=== PATIENT | male | born 1950 | race Caucasian/White ===

== ENCOUNTER 2021-08-19 09:47 | Outpatient (REF) | payer MEDICARE, OTHER, SELFPAY ==
[2021-08-19 10:39] LABS: Hematocrit 43.2 % (42-52); Hemoglobin 14.5 g/dl (14.0-18.0); Mean Corpuscular HGB Conc 33.6 g/dl (31.0-36.0); Mean Corpuscular Volume 98.2 fL (80-98); Mean Platelet Volume 11.1 fL (9.4-12.4); Platelet Count 144 X10*3/uL (160-400); Red Cell Distribution Width 11.8 % (11.0-16.0); White Blood Count 4.3 X10*3/uL (4.8-10.8)
[2021-08-19 11:29] LABS: Cholesterol 172 mg/dL; Glucose Fasting 97 mg/dL (60-99); HDL Cholesterol 35 mg/dL; LDL Cholesterol Calculated 118 mg/dl; Triglycerides 98 mg/dL
[2021-08-19 11:55] LABS: Prostate Specific Antigen Scr 2.37 ng/mL (<0.05-4.0)
== END 2021-08-19 09:48 | disposition home or self-care (01) ==
LOC: HO.LAB 09:47
PROVIDERS: PCP Family Medicine; Visit Provider Family Medicine
DX: Z12.5 Encounter for screening for malignant neoplasm of prostate (principal); E78.00 Pure hypercholesterolemia, unspecified; D72.819 Decreased white blood cell count, unspecified; Z83.3 Family history of diabetes mellitus; Z79.899 Other long term (current) drug therapy
CPT/HCPCS: 36415; 80061; 82947; 84153; 85027

== ENCOUNTER 2022-06-25 08:25 | Outpatient (REF) | payer MEDICARE, OTHER, SELFPAY ==
--- NOTE | ~2022-06-25 | XR_ITS ---
EXAMINATION: XR KNEE, LEFT CLINICAL INFORMATION: Pain. COMPARISON: None TECHNIQUE: Four views of the left knee. FINDINGS: No acute fracture or malalignment. Severe tricompartmental degenerative osteoarthritis more notable in the medial and patellofemoral compartments with joint space narrowing, subcortical sclerosis and osteophytes. No chondrocalcinosis. Small joint effusion. XR/XR knee LT 4V IMPRESSION: No acute fracture or malalignment. Severe tricompartmental degenerative osteoarthritis. Small joint effusion.
[2022-06-25 09:39] LABS: Alanine Aminotransferase 12 U/L (0-40); Aspartate Amino Transferase 15 U/L (5-37); Cholesterol 169 mg/dL; Glucose Fasting 100 mg/dL (60-99); HDL Cholesterol 36 mg/dL; LDL Cholesterol Calculated 118 mg/dl; Triglycerides 75 mg/dL
== END 2022-06-25 08:26 | disposition home or self-care (01) ==
LOC: HO.XRAY 08:25
PROVIDERS: PCP Family Medicine; Visit Provider Family Medicine
DX: M25.562 Pain in left knee (principal); E78.00 Pure hypercholesterolemia, unspecified; Z83.3 Family history of diabetes mellitus
CPT/HCPCS: 36415; 73564; 80061; 82947; 84450; 84460

== ENCOUNTER → 2022-08-13 10:50 | Outpatient (REF) | payer MEDICARE, OTHER, SELFPAY ==
--- NOTE | 2022-08-13 10:57 | ECG_ITS ---
Test Reason : new afib Blood Pressure : / mmHG Vent. Rate : 081 BPM Atrial Rate : 000 BPM P-R Int : 000 ms QRS Dur : 092 ms QT Int : 374 ms P-R-T Axes : 000 034 066 degrees QTc Int : 434 ms Atrial fibrillation Abnormal ECG When compared with ECG of 30-JAN-2015 10:59, Atrial fibrillation has replaced Sinus rhythm Referred By: Desean Barrientos Electronically Signed By:RADHA ROJAS
== END ==
LOC: HO.CARD 10:50
PROVIDERS: PCP Family Medicine; Visit Provider Family Medicine
DX: I48.91 Unspecified atrial fibrillation (principal)
CPT/HCPCS: 93005

== ENCOUNTER → 2022-09-15 07:18 | Outpatient (REF) | payer MEDICARE, OTHER, SELFPAY ==
--- NOTE | 2022-09-15 07:21 | CA_ITS ---
Transthoracic Echocardiogram Patient (Last, First, Middle): Rao Arteaga L Gender: Male Date of : 1950 Age: 72 Procedure Date: 09/15/2022 Procedure Type: Transthoracic Echocardiogram Location: OP Height: 185.42 cm Weight: 127.01 kg BSA: 2.48 m2 Heart Rate: bpm BP: 148 / 72 mmHg High School Sports Coach: SB Referring MD: Desean Barrientos MD [place] Administrator: Sonny Palacios MD Symptoms: NEW ONSET A FIB Study Quality: Adequate w contrast ECG Rhythm: Atrial Fibrillation Conclusions: - 1. Normal LV systolic function 2. Mild aortic stenosis 3. Mildly dilated ascending aorta at 3.8 cm 4. Normal RV systolic pressure 5. No gross pericardial effusion Findings Procedure Information Contrast agent, definity, is being given per protocol without apparent complications. Left Ventricle Normal left ventricular size, thickness, and systolic function. The visually estimated ejection fraction is between 60-65%. Diastolic function is indeterminate on the basis of available data. Right Ventricle The right ventricle was not well visualized. Atria The left atrium is likely dilated. Interatrial shunt cannot be excluded. The right atrium was not well visualized. Aortic Valve The aortic valve was not well visualized. There is mild calcification of the aortic valve. There is mild thickening of the aortic valve. There is mild aortic valve stenosis. The peak aortic gradient is 19 mmHg.The mean gradient is 10 mmHg. There is no aortic valve regurgitation. Mitral Valve The mitral valve was not well visualized. There is no mitral valve regurgitation. There is no mitral valve stenosis. Pulmonic Valve The pulmonic valve was not well visualized. Tricuspid Valve The tricuspid valve was not well visualized. There is trace tricuspid valve regurgitation. The right ventricular systolic pressure is normal. The right ventricular systolic pressure is 26 mmHg. Normal right atrial pressure. There is no evidence of pulmonary hypertension. Great Vessels The pulmonary artery was not well visualized. There is mild dilatation of the ascending aorta measuring 3.80 cm. Venous The inferior vena cava is normal in size and collapses greater than 50% with inspiration. Pericardium/Pleural There is no evidence of pericardial effusion. Prior Study Comparison Changes noted compared to prior study dated: 03/13/2017. mild aortic stenosis is noted Measurements 2D Linear Measurements IVSd: 1.09 0.6-0.9/0.6-1.0 cm LVIDd: 5.19 3.9-5.3/4.2-5.9 cm LVIDd Index: 2.09 2.4-3.2/2.2-3.1 cm/m2 LVIDs: 3.99 2.0-3.6 cm LVPWd: 0.89 0.7-1.1 cm LA Diam: 4.00 2.7-3.8/3.0-4.0 cm LAIDs Index: 1.61 1.5-2.3 cm/m2 LV Mass: 238.44 67-162/88-224 g LV Mass Index: 96.14 43-95/49-115 g/m2 LVOT Diam: 2.00 3.0+(-)1.3 cm 2D Systolic Function EF 4C: 65.20 >55% EF 2C: 60.80 >55% EF BiP: 63.30 >55% Mitral Valve MV Pk E: 0.98 Aortic Valve AoV Pk Jose: 2.16 AoV Mn Jose: 1.51 AoV VTI: 0.42 AoV Pk Grad: 19.00 Aov Mn Grad: 10.00 SURENDRA Cont.VTI: 1.65 LVOT LVOT Pk Jose: 1.43 LVOT Mn Jose: 0.95 LVOT VTI: 0.28 LVOT Pk Grad: 8.00 LVOT Mn Grad: 4.00 LVOT Diam: 2.00 LVOT Area: 3.14 Diastolic Function MV Pk E: 0.98 Right Ventricle TAPSE (mm): 22.50 TVS' Jose: 13.20 Tricuspid Valve TR Pk Jose: 2.38 TR Pk Grad: 23.00 RA Press: 3.00 RVSP: 26.00 Great Vessels Aorta Sinus of Valsalva: 3.20 2.0-3.5 cm Ao Asc: 3.80 2.1-3.4 cm Pulmonary Valve PV Pk Jose: 1.10 Peak PV Grad: 5.00 Updated in Other Vendor System with Status of Final Sonny Palacios MD electronically signed on 09/16/2022 4:09:01 PM with status of Final
== END ==
LOC: HO.CARD 07:18
PROVIDERS: PCP Family Medicine; Visit Provider Family Medicine
DX: I48.91 Unspecified atrial fibrillation (principal)
CPT/HCPCS: 93306; Q9957

== ENCOUNTER → 2022-09-22 10:07 | Outpatient (BNVA) | payer MEDICARE, OTHER, SELFPAY | PROVIDERS: PCP Family Medicine; Visit Provider Internal Medicine Cardiovascular Disease | DX: I48.19 Other persistent atrial fibrillation (principal); I35.0 Nonrheumatic aortic (valve) stenosis | CPT/HCPCS: 93005; 99202 ==

== ENCOUNTER 2023-07-15 09:50 | Outpatient (REF) | payer MEDICARE, OTHER, SELFPAY ==
[2023-07-15 10:39] LABS: MANUAL DIFF FLAG NO
[2023-07-15 12:10] LABS: Basophils Percent Auto 0.5 % (0-2); Eosinophils Absolute Auto 0.1 X10*3/uL (0.0-0.4); Eosinophils Percent Auto 1.9 % (0-4); Hematocrit 45.6 % (42.0-52.0); Hemoglobin 15.7 g/dl (14.0-18.0); Imm Gran Abs Auto 0.02 X10*3/uL (0.00-0.03); Imm Gran Pct Auto 0.5 % (0.0-0.4); Lymphocytes Absolute Auto 1.2 X10*3/uL (1.2-4.9); Lymphocytes Percent Auto 28.7 % (20-40); Mean Corpuscular HGB Conc 34.4 g/dl (31.0-36.0); Mean Corpuscular Hemoglobin 33.8 pg (27.0-33.0); Mean Corpuscular Volume 98.3 fL (80.0-98.0); Mean Platelet Volume 11.7 fL (9.4-12.4); Monocytes Absolute Auto 0.4 X10*3/uL (0.1-1.2); Monocytes Percent Auto 9.5 % (2-11); Neutrophils Absolute Auto 2.5 x10*3/uL (2.0-8.3); Neutrophils Percent Auto 58.9 % (45-73); Platelet Count 166 X10*3/uL (160-400); Red Blood Count 4.64 X10*6/uL (4.60-5.80); Red Cell Distribution Width 11.6 % (11.0-16.0); White Blood Count 4.2 X10*3/uL (4.8-10.8)
[2023-07-15 13:05] LABS: Alanine Aminotransferase 20 U/L (0-40); Anion Gap 10 (12-20); Aspartate Amino Transferase 17 U/L (5-37); Blood Urea Nitrogen 16 mg/dL (9-16); Carbon Dioxide 25 mmol/L (22-29); Chloride 109 mmol/L (96-108); Estimated Glomerular Filt Rate > 60; Sodium 140 mmol/L (135-145)
== END 2023-07-15 09:51 | disposition home or self-care (01) ==
LOC: HO.LAB 09:50
PROVIDERS: PCP Family Medicine; Visit Provider Family Medicine
DX: I48.91 Unspecified atrial fibrillation (principal); I35.0 Nonrheumatic aortic (valve) stenosis; R53.83 Other fatigue; E78.00 Pure hypercholesterolemia, unspecified
CPT/HCPCS: 36415; 80051; 82565; 84450; 84460; 84520; 85025; 99202

== ENCOUNTER 2023-07-15 14:09 | Outpatient (AMB) | payer MEDICARE, OTHER, SELFPAY ==
[2023-07-15 14:13] VITALS: BP 131/71; PULSE 74
--- NOTE | 2023-07-15 14:13 | MHC.OFFVIS ---
Intake Vital Signs 07/15/23 14:13 Height 6 ft 2 in BP 131/71 Blood Pressure Location Rt brachial Position Sitting Pulse 74 Intake Visit Reasons: Lesion on stomach, scabbed and inflamed Intake Note: This patient presents for an assessment for lesion on the abdomen, scabbed and inflamed. Patient c/o; reports lesion on abdomen, denies increase in size, red and inflamed, denies pain or discomfort. 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 He says he has noticed this for about 3 weeks now. He says that has had similar lesions in the past that heal on their own He says that this gets crusty and bloody each time he hits a hard surface with this. He denies any previous history of trauma or insect bite. COUNTS INCLUDE 234 BEDS AT THE [facility] Medical History (Updated 07/15/23 @ 14:30 by Barrington Rubi MD) Persistent atrial fibrillation Skin lesion Surgical History Hx of eye surgery Family History Father CHF (congestive heart failure) Mother No problems noted. Brother Afib Social History Patient Tobacco Use Status: Never used Tobacco Review of Systems Const Denies chills and Denies fever(s) Card Denies chest pain, Denies dyspnea and Denies dyspnea on exertion Resp Denies cough, Denies dyspnea and Denies dyspnea on exertion GI Denies hematochezia and Denies change in bowel habits Denies hematuria and Denies difficulty urinating Musc Denies back pain and Denies limited range of motion Neuro Denies focal weakness and Denies convulsions Psych Denies depression and Denies mood swings Physical Exam Vital Signs: Last Vital Signs Pulse 74 07/15/23 14:13 BP 131/71 07/15/23 14:13 Const General: comfortable and no acute distress Orientation/consciousness: patient oriented x3 Neck Neck: Yes no lymphadenopathy Resp Auscultation: clear to auscultation bilaterally Cardio Rhythm: regular rhythm GI Other: abdominal wall on the midline above the umbilicus shows a crusting skin lesion, about 2 cm in widest dimension, irregular, non pigmented Palpation (GI): Soft to palpation, nontender and no guarding Neuro General: patient oriented x3 Assessment & Plan Assessment & Plan (1) Skin lesion: Code(s): L98.9 - Disorder of the skin and subcutaneous tissue, unspecified Plan: He has a skin lesion on the abdominal wall as described above. This may be seborrheic keratosis although him a cell or basal cell carcinoma cannot be totally excluded at this time. I explained him the option of proceeding with excision. I explained the technique of this as well as the risks, benefits, and alternatives. I reviewed with him what to expect postoperatively He says that he has had similar lesions before and they often heal on their own. He will call the office once he decides to proceed. This will be done as an office procedure under local anesthesia if he decides to proceed. Plan I explained to him the technique of excision. I reviewed the risks including but not limited bleeding, infections and poor healing, as well as the benefits and alternatives. Coding Level of Care Code New Pt Level 3 (35025) Diagnoses Skin lesion L98.9
== END 2023-07-15 14:30 | disposition home or self-care (01) ==
PROVIDERS: PCP Family Medicine; Referring Provider Family Medicine; Visit Provider Surgery
DX: L98.9 Disorder of the skin and subcutaneous tissue, unspecified (principal)
CPT/HCPCS: 99203

== ENCOUNTER 2024-03-01 10:17 | Outpatient (REF) | payer MEDICARE, OTHER, SELFPAY ==
[2024-03-01 10:33] LABS: MANUAL DIFF FLAG NO
[2024-03-01 10:52] LABS: Basophils Percent Auto 0.7 % (0-2); Eosinophils Absolute Auto 0.1 X10*3/uL (0.0-0.4); Eosinophils Percent Auto 1.1 % (0-4); Hematocrit 43.5 % (42.0-52.0); Imm Gran Abs Auto 0.01 X10*3/uL (0.00-0.03); Imm Gran Pct Auto 0.2 % (0.0-0.4); Lymphocytes Absolute Auto 1.1 X10*3/uL (1.2-4.9); Lymphocytes Percent Auto 25.1 % (20-40); Mean Corpuscular HGB Conc 34.5 g/dl (31.0-36.0); Mean Corpuscular Hemoglobin 33.6 pg (27.0-33.0); Mean Corpuscular Volume 97.3 fL (80.0-98.0); Mean Platelet Volume 10.7 fL (9.4-12.4); Monocytes Absolute Auto 0.5 X10*3/uL (0.1-1.2); Monocytes Percent Auto 10.9 % (2-11); Neutrophils Absolute Auto 2.7 x10*3/uL (2.0-8.3); Platelet Count 162 X10*3/uL (160-400); Red Blood Count 4.47 X10*6/uL (4.60-5.80); White Blood Count 4.4 X10*3/uL (4.8-10.8)
[2024-03-01 11:56] LABS: Alanine Aminotransferase 17 U/L (0-40); Aspartate Amino Transferase 19 U/L (5-37); Cholesterol 164 mg/dL (<200); Glucose Fasting 90 mg/dL (60-99); HDL Cholesterol 38 mg/dL (>40); LDL Cholesterol Calculated 118 mg/dL (<100); Triglycerides 42 mg/dL (<150)
== END 2024-03-01 10:18 | disposition home or self-care (01) ==
LOC: HO.LAB 10:17
PROVIDERS: Visit Provider Family Medicine
DX: E66.9 Obesity, unspecified (principal); R73.9 Hyperglycemia, unspecified; E78.00 Pure hypercholesterolemia, unspecified; D72.819 Decreased white blood cell count, unspecified
CPT/HCPCS: 36415; 80061; 82947; 84450; 84460; 85025

== ENCOUNTER 2024-11-06 13:36 | Inpatient (IN) | payer MEDICARE, OTHER, SELFPAY ==
--- NOTE | ~2024-11-06 | US_ITS ---
EXAMINATION: US TRIPLEX LOWER EXTREMITY, LEFT CLINICAL INFORMATION: Lower extremity wound and swelling, diffuse edema. COMPARISON: None available. TECHNIQUE: Color-flow triplex imaging with spectral analysis and compression Doppler were performed on the left lower extremity. FINDINGS: Respiratory variation, normal compression and augmented flow are noted throughout the left lower extremity. The visualized common femoral vein, superficial femoral vein, profunda femoral vein, popliteal vein and midcalf peroneal and posterior tibial venous segments show no evidence of deep venous thrombosis. There is no Childers's cyst. There are reactive lymph nodes in the left groin. Within the medial aspect of the lower leg, in the area of wound, there is a complex appearing oval fluid collection measuring approximately 8.5 x 2.6 x 2.4 cm, most consistent with an abscess. US/US venous duplex LE IMPRESSION: 1. No evidence of deep venous thrombosis involving the left lower extremity. 2. Medial lower leg subcutaneous fluid collection in the area of wound measuring approximately 8.5 x 2.6 x 2.4 cm highly suspect for an abscess collection. 3. Diffuse subcutaneous edema. Electronically signed by: Darrel Yu MD 11/06/2024 04:39 PM [facility]
--- NOTE | ~2024-11-06 | XR_ITS ---
EXAMINATION: XR ANKLE, LEFT CLINICAL INFORMATION: ? free air ; wound medial leg. COMPARISON: None relevant. TECHNIQUE: AP, lateral, and mortise views of the left ankle. FINDINGS: No fracture, dislocation, or suspicious bone lesion. The ankle mortise is intact. The talar dome is normal. Mild arthritic changes in the ankle joint. No focal osteopenia or bone erosions. Small dorsal plantar calcaneal spur. Focal soft tissue swelling and edema involving the medial aspect of the lower left leg. No radiopaque foreign body or soft tissue gas. There is relatively diffuse subcutaneous soft tissue edema about the ankle. XR/XR ankle LT min 3V IMPRESSION: 1. No acute bony abnormalities. 2. Soft tissue swelling medial aspect lower left leg without subcutaneous gas or foreign body. Electronically signed by: Darrel Yu MD 11/06/2024 03:26 PM [facility]
--- NOTE | ~2024-11-06 | XR_ITS ---
EXAMINATION: XR TIBIA AND FIBULA, LEFT CLINICAL INFORMATION: Wound, rule out soft tissue gas. COMPARISON: X-ray left knee AP 422. TECHNIQUE: AP and lateral views of the left tibia and fibula were obtained. FINDINGS: No fracture, dislocation, or suspicious focal bone lesion. No erosions or evidence of osteomyelitis. Severe arthritis throughout the knee joint. There is subcutaneous soft tissue edema without evidence of subcutaneous gas or foreign body. XR/XR tibia fibula LT 2V IMPRESSION: 1. No acute bony abnormalities. 2. Severe arthritis in the knee joint. 3. No evidence of soft tissue gas. There is diffuse subcutaneous edema. Electronically signed by: Darrel Yu MD 11/06/2024 03:23 PM [facility]
[2024-11-06 13:43] VITALS: BP 147/78; PULSE 80; O2SAT 97
--- NOTE | 2024-11-06 13:46 | ED_ITS ---
HPI - General Adult General Chief complaint: Extremity Injury, Lower Stated complaint: L leg pain/ swelling/ injury per ems Time Seen by Provider: 11/06/24 13:45 History of Present Illness ED Provider: Dr. Lemus HPI narrative: 74 y/o M patient; PMH atrial fibrillation on xarelto, aortic stenosis; presents from home via EMS with report of left leg pain on recommendation of his PCP. The patient states he hit his left leg on a stair on Wednesday (10/31/2024). He states since then the area has gotten increasingly painful, swollen, and developed a blister which has since popped. He states the pain is so severe he is struggling with walking. He otherwise denies: fever or chills, nausea/vomiting, abdominal pain, chest pain, SOB, cough/congestion. He denies other injuries. Related Data Home Medications ?Medication ?Instructions ?Recorded ?Confirmed rivaroxaban 20 mg tablet (Xarelto) 20 mg PO DAILY 09/22/22 07/15/23 sertraline 100 mg tablet 100 mg PO DAILY 09/22/22 07/15/23 trazodone 50 mg tablet 50 mg PO BEDTIME 09/22/22 07/15/23 ketorolac 0.5 % eye drops 1 drp BID 11/06/24 Allergies Allergy/AdvReac Type Severity Reaction Status Date / Time Iodinated Contrast Media Allergy Numbness Verified 11/06/24 13:52 [Contrast Dye] Review of Systems 2 Review of Systems: Yes all other systems are reviewed and are negative PMFSH Past Medical History Attestation statement: The following information was validated with the patient. Source: old records reviewed Medical History Skin lesion Persistent atrial fibrillation Surgical History Hx of eye surgery Family History Family History Father CHF (congestive heart failure) Mother No problems noted. Brother Afib Social History Social History Alcohol intake: current Alcohol intake frequency: a few times a week Alcohol type: beer Patient Tobacco Use Status: Never used Tobacco Smoked in Last 30 Days: No Use of substances other than those prescribed or required for medical reasons: No Advance Directives: No Advance Directives Information Provided: Yes Do you have a plan to hurt others: No Plan Physical Exam ED Vital Signs: Vital Signs - 24 hr 11/06/24 13:48 Temperature 97.6 F Pulse Rate 72 Respiratory Rate 16 Blood Pressure 138/65 Pulse Oximetry 98 Oxygen Delivery Method Room Air BMI result Body Mass Index 33.4 Patient is afebrile and hemodynamically stable. Const General: cooperative and no acute distress Orientation/consciousness: patient oriented x3 HENMT Head: Yes normal to inspection and Yes atraumatic Eyes General: appearance normal, both eyes and all related structures Neck Neck: Yes normal visual inspection, Yes full ROM, Yes supple and No tender Chest Chest palpation & inspection: normal inspection of the chest and normal palpation of entire chest wall Resp Effort & Inspection: normal respiratory effort, able to speak in complete sentences, no cough and no respiratory distress Auscultation: clear to auscultation bilaterally Cardio Rate: regular rate Rhythm: regular rhythm Peripheral pulses: Peripheral pulses 2+ throughout GI Inspection: Yes normal to inspection, No Abdominal wall edema and No distended Palpation (GI): Soft to palpation, not firm, nontender, no guarding and not rigid Auscultation: normal bowel sounds Back/Spine/Pelvis Back: No back tenderness Neuro General: patient oriented x3 Extrem Other: LLE: Unstageable wound to left medial aspect of de la garza with adjacent wound. Significant surrounding erythema, warmth, tenderness. Underlying skin graft scars. NVI. Course Course Course Narrative: Patient is afebrile and hemodynamically stable. Will obtain XR, US, and laboratory studies. Started on Cefepime and Vancomycin. Given patient's significant cellulitis, underlying skin grafts in the affected region, and open wounds/unstageable wound - patient will require admission for IV antibiotics and likely wound care followup. Reevaluation(s) Reevaluation #1: Labs reviewed. No significant leukocytosis, 80% neutrophils. CRP elevated 8.35. ESR 27. XR with diffuse subcutanous edema. Plan: Admit to hospitalist Condition: Stable Medications Administered Discontinued Medications Generic Name Dose Route Start Last Admin Trade Name Freq PRN Reason Stop Dose Admin Cefepime HCl 2 gm in 50 mls @ 100 mls/hr 11/06/24 14:11 11/06/24 15:20 Maxipime IV 11/06/24 14:40 100 mls/hr ONCE ONE Administration Medical Decision Making Lab Data 11/06/24 14:47 11/06/24 14:47 Labs: Lab Results 11/06/24 Range/Units 14:47 WBC 7.2 (4.8-10.8) X10*3/uL RBC 4.39 L (4.60-5.80) X10*6/uL Hgb 14.9 (14.0-18.0) g/dl Hct 43.8 (42.0-52.0) % MCV 99.8 H (80.0-98.0) fL MCH 33.9 H (27.0-33.0) pg MCHC 34.0 (31.0-36.0) g/dl RDW 11.8 (11.0-16.0) % Plt Count 168 (160-400) X10*3/uL MPV 10.8 (9.4-12.4) fL Immature Gran % (Auto) 0.3 (0.0-0.4) % Neut % (Auto) 79.6 H (45-73) % Lymph % (Auto) 9.1 L (20-40) % Gregory % (Auto) 10.4 (2-11) % Eos % (Auto) 0.3 (0-4) % Baso % (Auto) 0.3 (0-2) % Lymph # (Auto) 0.7 L (1.2-4.9) X10*3/uL Gregory # (Auto) 0.8 (0.1-1.2) X10*3/uL Eos # (Auto) 0.0 (0.0-0.4) X10*3/uL Baso # (Auto) 0.0 (0.0-0.2) X10*3/uL Abs Immat Gran (auto) 0.02 (0.00-0.03) X10*3/uL Absolute Neuts (auto) 5.8 (2.0-8.3) x10*3/uL Absolute Nucleated RBC 0.000 (0.0-0.012) X10*3/uL Nucleated RBC % (auto) 0.0 (0.0-0.2) /100WBC ESR 27 H (0-15) MM/HR Sodium 142 (135-145) mmol/L Potassium 4.2 (3.3-5.1) mmol/L Chloride 106 (96-108) mmol/L Carbon Dioxide 26 (22-29) mmol/L Anion Gap 14 (12-20) BUN 10 (9-16) mg/dL Creatinine 0.76 (0.5-1.4) mg/dL Estim Creat Clear Calc 116.3 Estimated GFR > 60 Random Glucose 95 (60-115) mg/dL Lactic Acid 0.9 (0.5-2.0) mmol/L Calcium 8.9 (8.4-10.2) mg/dL Total Bilirubin 0.8 (0.0-1.0) mg/dL Direct Bilirubin 0.3 (0.0-0.5) mg/dL AST 19 (5-37) U/L ALT 15 (0-40) U/L Alkaline Phosphatase 73 (39-117) U/L C-Reactive Protein 8.35 H (< or = 0.50) mg/dL Total Protein 7.1 (6.5-8.0) g/dL Albumin 3.8 (3.5-5.0) g/dL Lipase 11 (8-78) U/L Radiology Impression Discussion of test interpretation with radiology: I have reviewed the radiologist's reading. Radiologist Impression: EXAMINATION: XR TIBIA AND FIBULA, LEFT CLINICAL INFORMATION: Wound, rule out soft tissue gas. COMPARISON: X-ray left knee AP 422. TECHNIQUE: AP and lateral views of the left tibia and fibula were obtained. FINDINGS: No fracture, dislocation, or suspicious focal bone lesion. No erosions or evidence of osteomyelitis. Severe arthritis throughout the knee joint. There is subcutaneous soft tissue edema without evidence of subcutaneous gas or foreign body. XR/XR tibia fibula LT 2V IMPRESSION: 1. No acute bony abnormalities. 2. Severe arthritis in the knee joint. 3. No evidence of soft tissue gas. There is diffuse subcutaneous edema. Electronically signed by: Darrel Yu MD 11/06/2024 03:23 PM [facility] EXAMINATION: XR ANKLE, LEFT CLINICAL INFORMATION: ? free air ; wound medial leg. COMPARISON: None relevant. TECHNIQUE: AP, lateral, and mortise views of the left ankle. FINDINGS: No fracture, dislocation, or suspicious bone lesion. The ankle mortise is intact. The talar dome is normal. Mild arthritic changes in the ankle joint. No focal osteopenia or bone erosions. Small dorsal plantar calcaneal spur. Focal soft tissue swelling and edema involving the medial aspect of the lower left leg. No radiopaque foreign body or soft tissue gas. There is relatively diffuse subcutaneous soft tissue edema about the ankle. XR/XR ankle LT min 3V IMPRESSION: 1. No acute bony abnormalities. 2. Soft tissue swelling medial aspect lower left leg without subcutaneous gas or foreign body. Electronically signed by: Darrel Yu MD 11/06/2024 03:26 PM [facility] Discharge Plan Discharge Clinical Impression: Cellulitis of left leg Prescriptions: No Action ketorolac 0.5 % drops 1 drp BID Xarelto 20 mg tablet 20 mg PO DAILY sertraline 100 mg tablet 100 mg PO DAILY trazodone 50 mg tablet 50 mg PO BEDTIME Print Language: Khmer
[2024-11-06 13:48] VITALS: BP 138/65; PULSE 72; RESP 16; TEMP 36.4; O2SAT 98; BMI 33.4
--- OUTSIDE RECORDS SUMMARY | 2024-11-06 14:39 | XMS_ITS | Data Portability ---
Author Organization [facility] [address] Address [address] [place] [address] Care Team Providers Care Auto Washer Name Role Phone YANG KALA Primary Care Provider Assessment No assessment recorded. Plan of Treatment Reminders Order Date Submit Date Provider Last Modified By Organization Details Last Modified Time Details Appointments None recorded. Lab None recorded. Referral None recorded. Procedures None recorded. Surgeries None recorded. Imaging None recorded. Medication Orders prednisone 20 mg tablet 2021 022 [id number], [address] [place], [address], 09:36:02 Patient TargetsNo targets recorded. Patient Instructions Encounter Date Encounter Id Patient Instructions Last Modified By Organization Details Last Modified Time 11/01/2022 [id number] [facility] [place] [place] [place]: care instructions [email or web address] Not available 11/01/2022 09:36:49 Reason for Referral None Reported. Problems Name Problem SNOMED Code Status Onset Date Resolution Date Notes Provider Name and Address Organization Details Recorded Time Insomnia 169951465 Active 2021 MP watts, [place] - [facility] 2 08:46:33 Anxiety 59496487 Active 2021 MP MUNOZ null, [place] - [facility] 2 08:46:40 Atrial fibrillation 54636717 Active 2021 MP watts, [place] - [facility] 2 08:48:42 Problem Notes None recorded. Procedures Surgical History Date Name Laterality Status Provider Name and Address Organization Details Recorded Time 8 Eye surgery follow-up add-on completed MP MUNOZ [place] - [facility] 11/01/2022 08:50:32 Imaging Results None recorded. Procedure Notes None recorded. Medical Equipment None Reported. Allergies No known drug allergies Medications Name Sig Start Date Stop Date Status Note LastModified by Organization Details LastModified Time prednisone 20 mg tablet 3 tabs PO daily x 3d then 2 tab PO daily x 4d then 1 tab PO daily x 3d then 0.5 tab PO daily x 2d - take with food 022 active Not Available Not Available Not Avai lable Zoloft active Not Available Not Availa ble Not Available trazodone active Not Available Not Ginger ilable Not Available Xarelto active Not Available Not Avail able Not Available Vitals Date Recorded Body height Body mass index (BMI) Body weight Oxygen saturation Oxygen saturation in Arterial blood by Pulse oximetry Heart rate Respiratory rate Body temperature Systolic blood pressure Diastolic blood pressure Provider Name and Address Organization Details Last Updated DateTime 2 187.96 cm 31.5 kg/m2 475578. 13 g 97 % 97 % 69 /min 18 /min 98.1 [degF] 106 mm[Hg] 61 mm[Hg] MP Jackson [facility] 2 08:52:16 Social History Question Answer Notes LastModified by Organizat ion Details LastModified Time Tobacco Smoking Status Never Smoker [facility] 11/01/2022 08:49:13 What Is Your Level Of Alcohol Consumption? Occasional Information not available 11/01/2022 How Many Times Per Week Do You Consume Alcohol? 1-2 Times Per Week Information not available 11/01/2022 Are You Currently Employed? No Retired Information not available 11/01/2022 Do You Use Any Illicit Or Recreational Drugs? No Information not available 11/01/2022 Have You Recently Traveled Abroad? No Information not available 11/01/2022 Sex: Unknown Functional Status None recorded. Mental Status None recorded. Family History Nothing Reported. Medical History No medical history recorded. Immunizations Vaccine Type Date Status Note Provider Nam e and Address Organization Details Recorded Time Pneumococcal conjugate PCV 13 7 completed [facility] 11/01/2022 08:45:43 COVID-19, mRNA, LNP-S, PF, 100 mcg/0.5mL dose or 50 mcg/0.25mL dose 1 completed MP ALEXANDER null, [place] - [facility] 11/01/2022 08:45:43 COVID-19, mRNA, LNP-S, PF, 100 mcg/0.5mL dose or 50 mcg/0.25mL dose 2 completed MP ALEXANDER null, [place] - [facility] 11/01/2022 08:45:43 COVID-19, mRNA, LNP-S, PF, 100 mcg/0.5mL dose or 50 mcg/0.25mL dose 1 completed MP ALEXANDER null, [place] - [facility] 11/01/2022 08:45:43 COVID-19, mRNA, LNP-S, bivalent, PF, 50 mcg/0.5 mL or 25mcg/0.25 mL dose 2 completed MP ALEXANDER null, [place] - [facility] 11/01/2022 08:45:43 pneumococcal polysaccharide PPV23 2 completed MP ALEXANDER null, [place] - [facility] 11/01/2022 08:45:43 Tdap 9 completed MP ALEXANDER null, [place] - [facility] 11/01/2022 08:45:43 Past Encounters Encounter ID Performer Location Encounter Start Date Encounter Closed Date Diagnosis/Indication Diagnosis SNOMED-CT Code Diagnosis ICD10 Code [id number] [address] [facility] [address] [place] [address] 02/15/2020 17:22:42 02/15/2020 20:43:20 [id number] JAMAL ARCEO MD [address] [address] [place] [address] 11/01/2022 08:10:38 11/01/2022 09:40:34 Contact dermatitis caused by urushiol from [facility] [id number] L25.5 Health Concerns Section Related Observation LastModified by Organization Tim ho LastModified Time None Recorded Concern Status LastModified by Organization Details LastModified Time None Recorded Advance Directives Directive None Recorded Payers Encounter Date Sequence Insurance Name Policy Number Policy Caballero Covered Member ID Caballero Member ID Guarantor Name 02/15/2020 1 [facility] [id number] Rao Arteaga [id number] Rao Arteaga 11/01/2022 1 MEDICARE [place]: [employer] Rao Arteaga [id number] Rao Arteaga 11/01/2022 2 [facility] [id number] Rao Arteaga [id number] Rao Arteaga Notes Date Note Type Note Provider Name and Address Organization Details Recorded Time 11/01/2022 text/html Skin Redness UCReported bypatient.Locatio n:face; bilateral arm Quality:erythemat ous;itchy Severity:worsenin g Alleviating factors:medicatio n Symptoms:no fever; no nausea; no vomiting;swelling cutting bushes 2d ago in afternoon and started yest with itchy red rash on RUE - starting to get some on L upper arm and has developed a few lesions on L face and has swelling around the L eye. No eye pain or issues with eye motion. Using an OTC cream which helps the itch. JAMAL ARCEO MD [address] [place], [address], [place] - [facility] 11/01/2022 09:40:36
[2024-11-06 14:51] LABS: MANUAL DIFF FLAG NO
[2024-11-06 14:55] LABS: Basophils Percent Auto 0.3 % (0-2); Eosinophils Percent Auto 0.3 % (0-4); Hematocrit 43.8 % (42.0-52.0); Hemoglobin 14.9 g/dl (14.0-18.0); Imm Gran Abs Auto 0.02 X10*3/uL (0.00-0.03); Imm Gran Pct Auto 0.3 % (0.0-0.4); Lymphocytes Absolute Auto 0.7 X10*3/uL (1.2-4.9); Lymphocytes Percent Auto 9.1 % (20-40); Mean Corpuscular Hemoglobin 33.9 pg (27.0-33.0); Mean Corpuscular Volume 99.8 fL (80.0-98.0); Mean Platelet Volume 10.8 fL (9.4-12.4); Monocytes Absolute Auto 0.8 X10*3/uL (0.1-1.2); Monocytes Percent Auto 10.4 % (2-11); Neutrophils Absolute Auto 5.8 x10*3/uL (2.0-8.3); Neutrophils Percent Auto 79.6 % (45-73); Platelet Count 168 X10*3/uL (160-400); Red Blood Count 4.39 X10*6/uL (4.60-5.80); Red Cell Distribution Width 11.8 % (11.0-16.0); White Blood Count 7.2 X10*3/uL (4.8-10.8)
[2024-11-06 15:07] LABS: Lactic Acid 0.9 mmol/L (0.5-2.0)
--- NOTE | 2024-11-06 15:12 | HO.SKINPHOTO ---
Location: Left lower leg Category: Stage: unstageable and stage 2 pressure injury Length: Width: Depth: cm Location: Category: Stage: Length: Width: Depth: cm Location: Category: Stage: Length: Width: Depth: cm Location: Category: Stage: Length: Width: Depth: cm Location: Category: Stage: Length: Width: Depth: cm Location: Category: Stage: Length: Width: Depth: cm
[2024-11-06 15:14] LABS: Albumin Level 3.8 g/dL (3.5-5.0); Anion Gap 14 (12-20); Aspartate Amino Transferase 19 U/L (5-37); Bilirubin Direct 0.3 mg/dL (0.0-0.5); Bilirubin Total 0.8 mg/dL (0.0-1.0); Blood Urea Nitrogen 10 mg/dL (9-16); C Reactive Protein 8.35 mg/dL (< or = 0.50); Calcium 8.9 mg/dL (8.4-10.2); Carbon Dioxide 26 mmol/L (22-29); Chloride 106 mmol/L (96-108); Creatinine Clr Calc Pharmacy 116.3; Estimated Glomerular Filt Rate > 60; Glucose Random 95 mg/dL (60-115); Lipase 11 U/L (8-78); Potassium 4.2 mmol/L (3.3-5.1); Sodium 142 mmol/L (135-145); Total Protein 7.1 g/dL (6.5-8.0)
[2024-11-06] MEDS: cefEPime HCl/D5W 2 GM/50 ML PIGGYBACK IV (15:20)
[2024-11-06 15:25] LABS: Alanine Aminotransferase 15 U/L (0-40); Alkaline Phosphatase 73 U/L (39-117)
[2024-11-06 15:44] LABS: Erythrocyte Sedimentation Rate 27 MM/HR (0-15)
--- NOTE | 2024-11-06 16:02 | PHA.MEDREC ---
Addendum entered by Ian Power RPh 11/06/24 16:50: Med rec was reviewed by Jose. Original Note: Pharmacy Consult ? Medication Reconciliation Pharmacy has completed the medication reconciliation. Spoke with patient and he confirmed his medications. He confirmed he is only taking the Xarelto 20mg tab once daily at 1800 around the time he eats his supper, Sertraline 100mg tab once daily in the morning and Trazodone 50mg tab at bedtime around 1930 he stated. He confirmed he last took his medications last night.
[2024-11-06] MEDS: vancomycin/NS 2,000 MG/500 ML PLAST..BAG 250 MG IV (16:03)
[2024-11-06 16:45] VITALS: BP 115/65; PULSE 83; RESP 16; TEMP 37; O2SAT 96
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
--- NOTE | 2024-11-06 17:35 | PHA.PROG ---
Admission Date/Time: November 06, 2024 16:42 Indication: skin Weight in k.934 kg Adjusted body weight in Kg: [place] body weight in Kg: Obesity Dosing Indication % IBW: Serum Creatinine - Last 168 Hours 11/06/24 14:47 Creatinine 0.76 Estimated CrCl and GFR - Last 168 Hours 11/06/24 14:47 Estim Creat Clear Calc 116.3 Estimated GFR > 60 Vancomycin Loading Dose: 2000 mg Current Vancomycin Dosing Regimen: 1250 mg q12h Vancomycin Monitoring using AUC goal of 400 - 600 range with trough as surrogate marker: LEO=489 TROUGH=15.6 Date and Time for next Vancomycin Level to be drawn: 11/07/24 @2100 Pharmacist Comments on Vancomycin Plan: Vancomycin dosing will take advantage of [employer] as a clinical decision support tool that uses Bayesian modeling to calculate individual patient's pharmacokinetic parameters and forecast the patient's drug concentration time course with the target goal AUC 24 range of 400 - 600 mg/L/hr.
[2024-11-06] MEDS: Rivaroxaban 20 MG TABLET PO (18:13)
--- NOTE | 2024-11-06 19:25 | PC.NURSE ---
pt sitting up in bed eating dinner tray. no complaints at this time
[2024-11-06] MEDS: traZODone HCL 50 MG TABLET PO (19:46)
[2024-11-06] MEDS: Acetaminophen 325 MG TABLET 650 MG PO (19:46)
[2024-11-06 20:33] VITALS: BP 97/59; PULSE 72; RESP 12; TEMP 37.6; O2SAT 95
[2024-11-06 21:53] VITALS: BP 122/72; PULSE 63; RESP 16; TEMP 36.6; O2SAT 94
[2024-11-06] MEDS: 0.9 % Sodium Chloride Flush 3 ML SYRINGE IVFLUSH (22:38)
[2024-11-06] MEDS: vancomycin HCL 1,250 MG in 0.9 % Sodium Chloride 250 ML 166.67 MG IV (22:38)
[2024-11-07] MEDS: cefEPime HCl/D5W 2 GM/50 ML PIGGYBACK IV ×4 (00:18→23:40)
[2024-11-07 03:04] VITALS: BMI 34.0
[2024-11-07 03:35] VITALS: BP 126/73; PULSE 67; RESP 16; TEMP 36.4; O2SAT 97
[2024-11-07 06:18] LABS: Creatinine Clr Calc Pharmacy 122.2; Estimated Glomerular Filt Rate > 60
[2024-11-07 07:29] VITALS: BP 132/66; PULSE 69; RESP 16; TEMP 36.4; O2SAT 94
[2024-11-07] MEDS: Sertraline HCL 100 MG TABLET PO (08:13)
[2024-11-07] MEDS: 0.9 % Sodium Chloride Flush 3 ML SYRINGE IVFLUSH ×3 (08:13→23:40)
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
[2024-11-07] MEDS: vancomycin HCL 1,250 MG in 0.9 % Sodium Chloride 250 ML 166.67 MG IV (12:02)
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
--- NOTE | 2024-11-07 15:31 | MHC.CM.PN ---
IMM delivered. Patient lives in a home w/ . Functionally independent. Denies use of DME or services. PCP Desean Barrientos MD HCP on file and verified. DP: Goal is home w/ , ? new [facility] for SN/wound care vs outpatient wound clinic. to transport. CM will continue to follow.
[2024-11-07 15:35] VITALS: BP 127/67; PULSE 83; RESP 18; TEMP 37.1; O2SAT 98
[2024-11-07] MEDS: Rivaroxaban 20 MG TABLET PO (16:16)
[2024-11-07 19:26] VITALS: BP 129/70; PULSE 71; RESP 18; TEMP 37.1; O2SAT 94
[2024-11-07] MEDS: traZODone HCL 50 MG TABLET PO (19:28)
[2024-11-07 21:36] LABS: Vancomycin Random 9.4 mcg/mL (15-20)
[2024-11-07] MEDS: vancomycin HCL 1,500 MG in 0.9 % Sodium Chloride 500 ML 333.33 MG IV (22:06)
[2024-11-08 03:14] VITALS: BP 121/71; PULSE 87; RESP 16; TEMP 36.6; O2SAT 96
[2024-11-08 07:07] LABS: Creatinine Clr Calc Pharmacy 117.3; Estimated Glomerular Filt Rate > 60
[2024-11-08] MEDS: cefEPime HCl/D5W 2 GM/50 ML PIGGYBACK IV (07:07)
[2024-11-08] MEDS: 0.9 % Sodium Chloride Flush 3 ML SYRINGE IVFLUSH (07:07)
[2024-11-08 07:27] VITALS: BP 113/70; PULSE 68; RESP 18; TEMP 36.8; O2SAT 94
[2024-11-08] MEDS: Sertraline HCL 100 MG TABLET PO (08:17)
[2024-11-08] MEDS: vancomycin HCL 1,500 MG in 0.9 % Sodium Chloride 500 ML 333.33 MG IV (10:55)
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
--- NOTE | 2024-11-08 11:35 | MHC.CM.PN ---
Per MD, patient medically cleared for dc home w/ new [facility] for wound care. will provide transport at 2pm. RN will also provide w/ wound care teaching at that time, as she may assist PRN.
--- NOTE | 2024-11-08 11:56 | HO.WOUND ---
Wound Consult: Initial 74yr old?male [place] [facility] [place] - See progress notes and H&P for detailed history.? Wound consult placed for Left Medial Grimaldo wound.? Patient agreeable to assessment and photo documentation.? Chart review reveals patient seen by general surgery Dr. Major and no surgical intervention needed at this time. Arrival to bedside patient reports significant improvement in Left Leg. He reports redness and swelling has decreased. He reports pain and tenderness. Left Medial Lower Leg Etiology: ?Cellulitis with fluid collection suspect hematoma Measurements: 3cm x 3cm x 0.1cm Wound Bed: dried black scab with moist marbled wound bed Drainage / Odor: serosang noted on dressing when removed Edges: ? irregular Queenie wound: ?red erythema receding per pt statement, fluctuance noted at the wound bed site - no fluid expressed when palpated given traumatic injury suspect hematoma since General surgery feels it is not an abscess. The leg continues to be warm and swollen Pain: pain reported - improving Goals of Treatment: ? Elevation, durafiber AG to provide antimicrobial protection and for moisture management. Rolando wrap applied in effort to provide compression for fluid given he is set to transport home and his leg will be dependent in his care ride home for sometime. Recommendations: 1. Left Lower Leg - Cleanse with NS, pat dry. Apply skin prep to periwound allow to dry. Cover wound bed with cut to size Durafiber AG, followed by dry gauze, ABD pad and Wrap. Change daily. May consider compression to aid in fluid mobilization and decrease time to heal. Lower Leg elevation throughout the day when not up ambulating. Re-consult wound care Nurse for wound deterioration or wound changes.
== END 2024-11-08 14:27 | disposition home health service (06) | DRG 603 ==
LOC: HO.ED 14:37 → HO.EDOVER 16:50 → HO.S3 19:30
PROVIDERS: Admitting Provider Hospitalist; Emergency Provider Emergency Medicine; PCP Family Medicine; Visit Provider Hospitalist
DX: L03.116 Cellulitis of left lower limb (principal); I48.19 Other persistent atrial fibrillation; Z79.01 Long term (current) use of anticoagulants; Z79.899 Other long term (current) drug therapy
CPT/HCPCS: 36415; 73590; 73610; 80048; 80076; 80202; 82565; 83605; 83690; 85025; 85652; 86140; 87040; 93971; 99285; J0692; J3370; J3371

== ENCOUNTER → 2024-11-06 14:07 | Outpatient (BNV) | payer MEDICARE, OTHER, SELFPAY | PROVIDERS: Emergency Provider Emergency Medicine; PCP Family Medicine; Visit Provider Radiology Diagnostic Radiology | DX: R22.42 Localized swelling, mass and lump, left lower limb (principal); M17.12 Unilateral primary osteoarthritis, left knee | CPT/HCPCS: 73590; 73610; 93971 ==

== ENCOUNTER → 2024-11-06 16:42 | Outpatient (BNV) | payer MEDICARE, OTHER, SELFPAY | PROVIDERS: Admitting Provider Hospitalist; Emergency Provider Emergency Medicine; PCP Family Medicine; Visit Provider Surgery | DX: L03.116 Cellulitis of left lower limb (principal) | CPT/HCPCS: 99222 ==

== ENCOUNTER → 2024-11-06 16:42 | Outpatient (BNV) | payer MEDICARE, OTHER, SELFPAY | PROVIDERS: Admitting Provider Hospitalist; Emergency Provider Emergency Medicine; PCP Family Medicine; Visit Provider Hospitalist | DX: L03.116 Cellulitis of left lower limb (principal) | CPT/HCPCS: 99239 ==

== ENCOUNTER 2025-05-03 10:15 | Outpatient (RCR) | payer MEDICARE, OTHER, SELFPAY | END 2025-05-03 16:24 | disposition home or self-care (01) | LOC: HO.WCC 10:15 | PROVIDERS: PCP Family Medicine; Visit Provider Surgery | DX: I87.302 Chronic venous hypertension (idiopathic) without complications of left lower extremity (principal); Z79.01 Long term (current) use of anticoagulants; Z79.899 Other long term (current) drug therapy | CPT/HCPCS: 11042; 11043; 17250; 99212; 99213 ==

== ENCOUNTER 2025-05-15 08:31 | Outpatient (REF) | payer MEDICARE, OTHER, SELFPAY ==
--- OUTSIDE RECORDS SUMMARY | 2025-05-15 08:46 | XMS_ITS | Data Portability ---
Author Organization [facility], [address] Address [address] [place] [address] Care Team Providers Care Top Cager Name Role Phone KALA SORIA Primary Care Provider Assessment No assessment recorded. Plan of Treatment Reminders Order Date Submit Date Provider Last Modified By Organization Details Last Modified Time Details Appointments None recorded. Lab None recorded. Referral None recorded. Procedures None recorded. Surgeries None recorded. Imaging None recorded. Medication Orders prednisone 20 mg tablet 2021 022 [id number], [address] [place], [address], 09:36:02 Patient TargetsNo targets recorded. Patient Instructions Encounter Date Encounter Id Patient Instructions Last Modified By Organization Details Last Modified Time 11/01/2022 [id number] [facility] [place] [place]: care instructions [email or web address] Not available 11/01/2022 09:36:49 Reason for Referral None Reported. Problems Name Problem SNOMED Code Status Onset Date Resolution Date Notes Provider Name and Address Organization Details Recorded Time Insomnia 644317589 Active 2021 MP MUNOZ null, [place] - [facility] 2 08:46:33 Anxiety 51215558 Active 2021 MP MUNOZ null, [place] - [facility] 2 08:46:40 Atrial fibrillation 73684975 Active 2021 MP MUNOZ null, [place] - [facility] 2 08:48:42 Problem [...] Updated DateTime 2 187.96 cm 31.5 kg/m2 364161. 13 g 97 % 97 % 69 /min 18 /min 98.1 [degF] 106 mm[Hg] 61 mm[Hg] MP MUNOZ [place] - [facility] 2 08:52:16 Social History Question Answer Notes LastModified by [employer] Details LastModified Time Tobacco Smoking Status Never Smoker MP watts [employer] [facility] 11/01/2022 08:49:13 Have You Recently Traveled Abroad? No Information not available 11/01/2022 Sex: Unknown Functional Status Question Answer Note LastModified by [employer] Details LastModified Time How many times per week do you consume alcohol? 1-2 times per week Information not available 11/01/2022 Do you use any illicit or recreational drugs? No Information not available 11/01/2022 What is your level of alcohol consumption? Occasional Information not available 11/01/2022 Are you currently employed? No retired Information not available 11/01/2022 Mental Status None recorded. Family History Nothing Reported. Medical History No medical history recorded. Immunizations Vaccine Type Date Status Note Provider Nam e and Address Organization Details Recorded Time Pneumococcal conjugate PCV 13 7 completed MP ALEXANDER null, [place] - [facility] [...] Diagnosis/Indication Diagnosis SNOMED-CT Code Diagnosis ICD10 Code Diagnosis Note [id number] [address] [place] [address] 02/15/2020 17:22:42 02/15/2020 20:43:20 [id number] JAMAL ARCEO MD [id number] [place] [address] 11/01/2022 08:10:38 11/01/2022 09:40:34 Contact dermatitis caused by urushiol from [facility] [place] 084587222 L25.5 Return to [facility] or see your primary care physician if your symptoms fail to improve in 3-5 days. You should follow up sooner if your symptoms worsen significan tly or if you develop new symptoms that concern you. If your symptoms worsen or persist you should be re-evaluat ed. If your symptoms are getting worse, you should call 911 or go to the emergency department . Health Concerns Section Related Observation LastModified by Organization Detai ls LastModified Time None Recorded Concern Status LastModified by Organization Details LastModified Time None Recorded Advance Directives Directive None Recorded Payers Insurance Date Sequence Insurance Name Policy Number Policy Caballero Covered Member ID Caballero Member ID Guarantor Name 11/01/2022 1 [facility] [id number] Rao Jenni [id number] Rao Jenni 11/01/2022 1 MEDICARE [place]: [employer] Rao Wangnicole [id number] Rao Jenni 11/01/2022 2 [facility] [id number] Rao Wangnicole [id number] Rao Jenni Notes Date Note Type Note Provider Name [...] JAMAL ARCEO MD [address] [place], [address], [place] - [facility] 11/01/2022 09:40:36
[2025-05-15 09:36] LABS: Cholesterol 151 mg/dL (<200); Glucose Fasting 92 mg/dL (60-99); HDL Cholesterol 32 mg/dL (>40); LDL Cholesterol Calculated 102 mg/dL (<100); Triglycerides 85 mg/dL (<150)
== END 2025-05-15 08:32 | disposition home or self-care (01) ==
LOC: HO.LAB 08:31
PROVIDERS: PCP Family Medicine; Visit Provider Family Medicine
DX: E78.00 Pure hypercholesterolemia, unspecified (principal); Z82.49 Family history of ischemic heart disease and other diseases of the circulatory system
CPT/HCPCS: 36415; 80061; 82947

== ENCOUNTER 2025-08-08 10:11 | Outpatient (AMB) | payer MEDICARE, OTHER, SELFPAY ==
--- NOTE | 2025-08-08 10:14 | MHC.PC.OV ---
Vital Signs 08/08/25 10:19 Height 6 ft 2 in Weight 250 lb BMI 32.1 BP 120/76 Blood Pressure Location Rt brachial Position Sitting Respiration 18 Pulse 65 Pulse Source Pulse Oximeter Temp 97.7 F Temp Source Temporal Artery Scan Pulse Oximetry (%) 97 Oxygen Delivery Method Room Air Intake Visit Reasons: 3 MO F/UP - YANG PT - WANTS DR. GILLILAND Twisthand Required: No Accompanied by: Self / Same As Patient Allergies Iodinated Contrast Media (Contrast Dye) Allergy (Verified 08/08/25 10:14) Numbness Medication List - Last Reconciled 08/08/25 by Buzz Gilliland MD rivaroxaban (Xarelto) 20 mg PO DAILY@1800 sertraline 100 mg PO DAILY trazodone 50 mg PO BEDTIME@1930 Tobacco use date assessed: 08/08/25 Fall risk assessment: No Falls in past year Last assessed Fall Risk: 08/08/25 Dental Screening Dental Screen Date: 08/08/25 Did you have a dental visit in the last 12 months?: No Did you have a dental problem in the last 6 months where you did not have access to dental care?: No Was dental information given to patient?: Patient has dentist HPI HPI Comments History of Present Illness Details The patient is a 74-year-old male presenting with multiple chronic conditions and concerns regarding an umbilical hernia and a lump on his knee. The umbilical hernia has been long-standing with concerns about previous medical advice regarding mesh use, although the patient can currently reduce it manually with no associated pain or complications. The knee lump has been stable in size for several years and is non-painful. The patient expresses reluctance to remove it due to previous advice regarding potential infection risk. The patient has a history of atrial fibrillation and takes blood thinners as prophylaxis against thromboembolic events. He expresses concern about being on anticoagulant therapy due to its interaction with [id number] anti-inflammatory medications he uses intermittently for knee pain. He manages the knee pain episodically with Aleve (naproxen), which he finds effective for short periods. The patient has also conveyed interest in potential interventions such as the Watchman device for atrial fibrillation, pending cardiology evaluation. Additionally, the patient has a known history of aortic stenosis, annually monitored with echocardiograms, with the last examination conducted approximately six to eight months prior. The patient maintains treatment with sertraline and trazodone for long-standing anxiety and depressive symptoms, he reports a stable mood with no significant exacerbation of symptoms. Furthermore, he has a history of retinal detachment surgically repaired several years back, with no mention of subsequent complications. Medical History: - Atrial Fibrillation - Aortic Valve Stenosis - Umbilical Hernia - Degenerative Joint Disease (Knee) - Generalized Anxiety Disorder - Major Depressive Disorder - Retinal Detachment (s/p repair) Surgical History: - Right Eye Retinal Detachment Repair Medications: - Sertraline 100 mg for anxiety and depression - Trazodone for anxiety and depression - Anticoagulant therapy for atrial fibrillation Family History: - Father: Congestive Heart Failure - Brothers: Atrial Fibrillation - No family history of cancer - No family history of diabetes Diagnostic Results: - EKG demonstrating atrial fibrillation (ongoing, previous result) - Echocardiogram for aortic valve stenosis monitoring (last 6-8 months prior) Social: - Retired, living with - Previous occupation involved physical activity - Alcohol: Consumes 6-8 beers weekly - Tobacco: Occasional cannabis use - No history of tobacco smoking - No other illicit substance use [facility]LY [facility], [facility] Medical History (Updated 08/08/25 @ 10:40 by Buzz Gilliland MD) Osteoarthritis Mood disorder Umbilical hernia Establishing care with new doctor, encounter for Skin lesion Persistent atrial fibrillation Surgical History Hx of eye surgery Family History Father CHF (congestive heart failure) Mother No problems noted. Brother Afib Social History Household Members: Spouse Housing: House Do you presently have visiting nurse or other home services: No Alcohol intake: current Alcohol intake frequency: a few times a week Alcohol type: beer Patient Tobacco Use Status: Never used Tobacco e-Cigarette/Vaping Use: Never Used service: No Current occupational status: retired Questionnaire PHQ-9 Over the last 2 weeks, how often have you been bothered by any of the following problems? 1. Little interest or pleasure in doing things: not at all 2. Feeling down, depressed, or hopeless: several days 3. Trouble falling or staying asleep, or sleeping too much: not at all 4. Feeling tired or having little energy: not at all 5. Poor appetite or overeating: not at all 6. Feeling bad about yourself - or that you are a failure or have let yourself or your family down: not at all 7. Trouble concentrating on things, such as reading the newspaper or watching television: not at all 8. Moving or speaking so slowly that other people could have noticed. Or the opposite - being so fidgety or restless that you have been moving around a lot more than usual: not at all 9. Thoughts that you would be better off or of hurting yourself in some way: not at all Total score: 1 Depression Screening Interpretation: Negative Depression Screening Done: Yes 38049 - PHQ-9 Billing: Yes Source: Developed by Drs. Zuhair Funes, Gena Massey, Lance Wilkins and colleagues, with an educational marianela from [employer]. Thrive Questionnaire Date Thrive assessed: 11/07/24 I am a: Patient What is your living situation today?: I have a steady place to live Within the past 12 months, did the food you bought not last and you didn't have the money to get more?: Never true Within the past 12 months, did you worry whether your food would run out before you got money to buy more?: Never true Do you have trouble paying for medicines?: No Do you have trouble getting transportation to medical appointments?: No Do you have trouble paying your heating and electricity bill?: No Do you have trouble taking care of your child, family member or friend?: No Do you have trouble with day-to-day activities such as bathing, preparing meals, shopping, managing finances, etc.?: No Are you currently unemployed and looking for a job?: No Are you interested in more education?: No THRIVE Score: 0 AUDIT C Alcohol Use Questionnaire (AUDIT-C) 1. How often do you have a drink containing alcohol?: 4 or more times a week 2. How many drinks containing alcohol do you have on a typical day when you are drinking?: 1 or 2 Total Score: 4 Score Reviewed/Action Taken: Yes RODRIGUE-7 AMB Questionnaire RODRIGUE-7 Date RODRIGUE - 7 assessed: 08/08/25 Feeling nervous, anxious, or on edge: 0 = Not at all Not being able to stop or control worryin = Not at all Worrying too much about different things: 0 = Not at all Trouble relaxin = Not at all Being so restless that it is hard to sit still: 0 = Not at all Becoming easily annoyed or irritable: 0 = Not at all Feeling afraid as if something awful might happen: 0 = Not at all Total RODRIGUE-7 score (0-4 normal; 5-9 mild; 10-14 moderate; 15-21 severe): 0 Source: Developed by Drs. Zuhair Funes, Gena Massey, Lance Wilkins and colleagues, with an educational marianela from [employer]. RODRIGUE-7 Assessment Billing RODRIGUE-7 Assessment Tool: RODRIGUE-7 Assessment 52645 Review of Systems Const Details: - Cardiovascular: Reports no chest pain, no palpitations; denies shortness of breath. - Gastrointestinal: Reports umbilical hernia reducible; denies pain. - Musculoskeletal: Reports stable knee lump; reports knee pain managed with non-daily NSAID use. - Neurological: Denies headache, dizziness. - Psychiatric: Reports stable mood; denies recent onset depression, anxiety episodes controlled with medication. - Ocular: Denies changes in vision post-retinal surgery. - Respiratory: Denies cough, respiratory issues. All systems reviewed & are unremarkable except as reviewed in HPI and above Physical exam (Primary Care) Vital Signs: Last Vital Signs Temp 97.7 F 08/08/25 10:19 Pulse 65 08/08/25 10:19 Resp 18 08/08/25 10:19 BP 120/76 08/08/25 10:19 Pulse Ox 97 08/08/25 10:19 Oxygen Delivery Method Room Air 08/08/25 10:19 BMI result Body Mass Index 32.1 Tobacco/Smoking Status: Tobacco use Status Tobacco use date assessed 08/08/25 08/08/25 10:16 Patient Tobacco Use Status Never used Tobacco 08/08/25 10:16 e-Cigarette/Vaping Use Never Used 08/08/25 10:16 Depression Screening Interpretation: Negative Thrive Assessment: Date of Thrive Assessment Date Thrive assessed 11/07/24 08/08/25 10:16 Const Other: General: +Alert and oriented, Well nourished, No acute distress. Eye: Pupils are equal, round and reactive to light, Intact accommodation, Extraocular movements are intact, Normal conjunctiva, Vision unchanged. HENT: Normocephalic, Atraumatic, Tympanic membranes are clear, Normal hearing, Oral mucosa is moist, No pharyngeal erythema, Ear canals patent. Respiratory: Lungs CTA bilaterally, No wheeze, Respirations are non-labored. Cardiovascular: Irregular rate, Irregular rhythm, S1 auscultated, S2 auscultated, No murmur, Good pulses equal in all extremities, Normal peripheral perfusion, No edema. Gastrointestinal: Soft, Non-tender, Non-distended, Normal bowel sounds, No organomegaly, Umbilical hernia present. Musculoskeletal: Normal range of motion, Normal strength, No tenderness, No swelling, No deformity, Normal gait, Lump on knee present. Integumentary: Warm, Dry, [place], Intact, Healed burn scar on leg. Neurologic: Alert, Oriented, Normal sensory, Normal motor function, No focal defects, Cranial Nerves II-XII are grossly intact, Normal deep tendon reflexes. Psychiatric: Cooperative, Appropriate mood & affect, Normal judgment, Stable mood with sertraline and trazodone. Coding Level of Care Code New Pt Level 4 (95358) New Pt Prev Care >65yr (18079) Diagnoses Establishing care with new doctor, encounter for Z76. Nonrheumatic aortic valve stenosis I35.0 Cardiac valve disease etiology: nonrheumatic Persistent atrial fibrillation I48.19 Umbilical hernia without obstruction and without gangrene K42.9 Obstruction and gangrene presence: without obstruction or gangrene Mood disorder F39 Primary osteoarthritis of both knees M17.0 Osteoarthritis location: knee Osteoarthritis type: primary Laterality: bilateral Additional Codes RODRIGUE-7 Assessment Billing - RODRIGUE-7 Assessment Tool: RODRIGUE-7 Assessment 85095 ([id number]) PHQ-9 - 95003 - PHQ-9 Billing: Yes ([id number]) Assessment & Plan Assessment & Plan (1) Establishing care with new doctor, encounter for: Comment: - Obtain Baseline Labs Code(s): Z76.89 - Persons encountering health services in other specified circumstances Category: Medical (2) Aortic stenosis: Comment: - Monitor with annual echocardiograms. (Last one 8 months ago) - Arrange for cardiology follow-up to discuss potential interventions. Code(s): I35.0 - Nonrheumatic aortic (valve) stenosis Category: Medical Qualifiers: Cardiac valve disease etiology: nonrheumatic Qualified Code(s): I35.0 - Nonrheumatic aortic (valve) stenosis (3) Persistent atrial fibrillation: Comment: - Continue anticoagulant therapy to reduce thromboembolism risk. - Discussion with the patient regarding the Watchman procedure; patient encouraged to pursue this with child care giver. Code(s): I48.19 - Other persistent atrial fibrillation Category: Medical (4) Umbilical hernia: Comment: - Hernia to be monitored as long as it remains manually reducible and asymptomatic. Code(s): K42.9 - Umbilical hernia without obstruction or gangrene Category: Medical Qualifiers: Obstruction and gangrene presence: without obstruction or gangrene Qualified Code(s): K42.9 - Umbilical hernia without obstruction or gangrene (5) Mood disorder: Comment: - Hernia to be monitored as long as it remains manually reducible and asymptomatic. Code(s): F39 - Unspecified mood [affective] disorder Category: Medical (6) Osteoarthritis: Comment: - NSAID use discussed, with emphasis on minimizing frequency due to age and potential systemic effects. - Monitor for aggravating factors or progression in pain and function. Code(s): M19.90 - Unspecified osteoarthritis, unspecified site Category: Medical Qualifiers: Osteoarthritis location: knee Osteoarthritis type: primary Laterality: bilateral Qualified Code(s): M17.0 - Bilateral primary osteoarthritis of knee Plan: Health Maintenance: - Encourage annual colonoscopy screening discussion due to age. - Maintain echocardiogram schedule for aortic stenosis monitoring. - Discuss healthy alcohol consumption limits and encourage continued moderation. Plan During our discussion, I emphasized the importance of anticoagulation therapy for atrial fibrillation in preventing serious complications like stroke. We discussed alternatives like the Watchman procedure for which the patient should consult with their child care giver. I explained that the umbilical hernia can be left as is since it is reducible and non-problematic. The knee lump does not require intervention as it has not changed over several years. Coordination with existing cardiovascular follow-ups was advised, and lifestyle modifications were discussed to promote overall wellbeing. The patient was informed to remain vigilant for any new symptoms or exacerbating issues. Orders: Orders Hemoglobin A1c Today Z76.89 - Persons encountering health services in other specified circumstances Lipid Panel Today Z76.89 - Persons encountering health services in other specified circumstances TSH reflex Free T4 Today Z76.89 - Persons encountering health services in other specified circumstances Vitamin D 25-OH Total Today Z76.89 - Persons encountering health services in other specified circumstances Complete Blood Count Auto Diff Today Z76.89 - Persons encountering health services in other specified circumstances Comprehensive Met. Panel Today Z76.89 - Persons encountering health services in other specified circumstances Referrals Open Access Screening Colonoscopy Referral Z12.11 - Encounter for screening for malignant neoplasm of colon Patient Instructions: - Continue taking prescribed medications as directed. - Minimize NSAID use for knee pain; focus on non-pharmacological strategies. - Follow up with child care giver regarding atrial fibrillation and potential Watchman procedure. - Attend regular cardiology visits for aortic stenosis monitoring. - Reach out with any new, concerning symptoms. - Schedule a colonoscopy as recommended for age-appropriate cancer screening.
[2025-08-08 10:19] VITALS: BP 120/76; PULSE 65; RESP 18; TEMP 36.5; O2SAT 97; BMI 32.1
--- OUTSIDE RECORDS SUMMARY | 2025-08-08 12:24 | XMS_ITS ---
Author Name [facility] Organization Unknown Care Team Organization Name Specialty Phone Email Start Date End Da te [facility] ([facility])
== END 2025-08-08 10:41 | disposition home or self-care (01) ==
PROVIDERS: PCP Student in an Organized Health Care Education/Training Program; Visit Provider Student in an Organized Health Care Education/Training Program
DX: I35.0 Nonrheumatic aortic (valve) stenosis (principal); I48.19 Other persistent atrial fibrillation; K42.9 Umbilical hernia without obstruction or gangrene; F39 Unspecified mood [affective] disorder; M17.0 Bilateral primary osteoarthritis of knee

== ENCOUNTER → 2025-08-08 10:11 | Outpatient (BNVA) | payer MEDICARE, OTHER, SELFPAY | PROVIDERS: PCP Family Medicine; Visit Provider Student in an Organized Health Care Education/Training Program | DX: Z76.89 Persons encountering health services in other specified circumstances (principal); I35.0 Nonrheumatic aortic (valve) stenosis; I48.19 Other persistent atrial fibrillation; K42.9 Umbilical hernia without obstruction or gangrene; F39 Unspecified mood [affective] disorder; M17.0 Bilateral primary osteoarthritis of knee; Z79.01 Long term (current) use of anticoagulants; Z13.31 Encounter for screening for depression; Z13.39 Encounter for screening examination for other mental health and behavioral disorders | CPT/HCPCS: 96127; 99202 ==

== ENCOUNTER 2025-09-17 08:05 | Outpatient (AMB) | payer MEDICARE, OTHER, SELFPAY ==
[2025-09-17 07:51] VITALS: BP 130/82; PULSE 63; TEMP 36.6; O2SAT 97; BMI 33.3
--- NOTE | 2025-09-17 07:51 | A.OFFPC_ITS ---
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 Accompanied by: Self / Same As Patient Allergies Iodinated Contrast Media (Contrast Dye) Allergy (Verified 09/17/25 07:51) Numbness Medication List - Last Reconciled 09/17/25 by Buzz Barrios MD cholecalciferol (vitamin D3) 25 mcg PO DAILY rivaroxaban (Xarelto) 20 mg PO Q24H 90 days sertraline 100 mg PO DAILY 90 days trazodone 50 mg PO DAILY 90 days Tobacco use date assessed: 09/17/25 Fall risk assessment: No Falls in past year Last assessed Fall Risk: 09/17/25 Dental Screening Dental Screen Date: 09/17/25 Did you have a dental visit in the last 12 months?: No Did you have a dental problem in the last 6 months where you did not have access to dental care?: No HPI HPI Comments History of Present Illness Details The patient is a 75-year-old male presenting with ear-related symptoms. For the last couple of weeks, he has experienced a clogged sensation in his ear, a constant tinny sound, and an estimated 50% decrease in hearing in that ear. The onset was preceded by soreness around his jaw, which has since resolved. He denies any trauma, falls, or exposure to loud noises. He attempted to use Debrox, which did not provide relief, and has also tried heat packs to the area without benefit. The patient has a history of atrial fibrillation, for which he takes Xarelto, and aortic stenosis. He has a cardiology appointment pending in December and plans to discuss the Watchman procedure as a potential alternative to blood thinners. He also has a history of a mood disorder treated with sertraline and trazodone. A few weeks ago, the patient experienced an episode of waking up at night with palpitations, sweating, and nausea, which has been attributed to his atrial fibrillation. Earlier in the year, he had a leg infection that took approximately seven months to heal. He has chronic knee pain for which he takes Tylenol only when severe. Medical History: - Atrial Fibrillation - Aortic Stenosis - Mood disorder - Arthralgia of the knees - History of leg infection Medications: - Xarelto for atrial fibrillation - Sertraline for mood - Trazodone for mood - Vitamin D supplement - Magnesium - Tylenol as needed for knee pain Diagnostic Results: - Echocardiogram: An echocardiogram was previously performed which showed aortic stenosis; a copy of the report is needed for revie Social History: - The patient resides in [facility]. [facility] Medical History (Updated 09/17/25 @ 08:36 by Buzz Barrios MD) Tinnitus Osteoarthritis Mood disorder Umbilical hernia Establishing care with new doctor, encounter for Skin lesion Persistent atrial fibrillation Surgical History Hx of eye surgery Family History (Updated 09/17/25 @ 08:16 by Sandra Mcnulty MA) Father CHF (congestive heart failure) Mother No problems noted. Brother Afib Social History Household Members: Spouse Housing: House Do you presently have visiting nurse or other home services: No Alcohol intake: current Alcohol intake frequency: a few times a week Alcohol type: beer Patient Tobacco Use Status: Never used Tobacco e-Cigarette/Vaping Use: Never Used service: No Current occupational status: retired Cognitive needs: No Hearing needs: No Vision needs: Yes (Reading glasses) Questionnaire PHQ-9 Over the last 2 weeks, how often have you been bothered by any of the following problems? 1. Little interest or pleasure in doing things: not at all 2. Feeling down, depressed, or hopeless: not at all 3. Trouble falling or staying asleep, or sleeping too much: not at all 4. Feeling tired or having little energy: not at all 5. Poor appetite or overeating: not at all 6. Feeling bad about yourself - or that you are a failure or have let yourself or your family down: not at all 7. Trouble concentrating on things, such as reading the newspaper or watching television: not at all 8. Moving or speaking so slowly that other people could have noticed. Or the opposite - being so fidgety or restless that you have been moving around a lot more than usual: not at all 9. Thoughts that you would be better off or of hurting yourself in some way: not at all Total score: 0 Source: Developed by Drs. Zuhair Funes, Lance Kaufman and colleagues, with an educational marianela from [employer]. Thrive Questionnaire Date Thrive assessed: 09/17/25 I am a: Patient Within the past 12 months, did the food you bought not last and you didn't have the money to get more?: Never true Within the past 12 months, did you worry whether your food would run out before you got money to buy more?: Never true Do you have trouble paying for medicines?: No Do you have trouble getting transportation to medical appointments?: No Do you have trouble paying your heating and electricity bill?: No Do you have trouble taking care of your child, family member or friend?: No Do you have trouble with day-to-day activities such as bathing, preparing meals, shopping, managing finances, etc.?: No Are you currently unemployed and looking for a job?: No Are you interested in more education?: No THRIVE Score: 0 AUDIT C Alcohol Use Questionnaire (AUDIT-C) 1. How often do you have a drink containing alcohol?: Monthly or less 2. How many drinks containing alcohol do you have on a typical day when you are drinking?: 1 or 2 3. How often do you have six or more drinks on one occasion?: Less than monthly Total Score: 2 RODRIGUE-7 AMB Questionnaire RODRIGUE-7 Date RODRIGUE - 7 assessed: 09/17/25 Feeling nervous, anxious, or on edge: 0 = Not at all Not being able to stop or control worryin = Not at all Worrying too much about different things: 0 = Not at all Trouble relaxin = Not at all Being so restless that it is hard to sit still: 0 = Not at all Becoming easily annoyed or irritable: 0 = Not at all Feeling afraid as if something awful might happen: 0 = Not at all Total RODRIGUE-7 score (0-4 normal; 5-9 mild; 10-14 moderate; 15-21 severe): 0 Source: Developed by Gena Saunders Kurt Kroenke and colleagues, with an educational marianela from [employer]. Review of Systems Narrative - HEENT/Ears: Reports a clogged sensation, constant tinny sound (tinnitus), and a 50% decrease in hearing in one ear for a couple of weeks. Denies trauma to the ear or exposure to loud noises. - Cardiovascular: Reports one recent nocturnal episode of palpitations, sweating, and nausea. Denies other cardiovascular symptoms. - General: Denies weight loss or recent infections such as flu or colds. - Musculoskeletal: Reports chronic knee pain, which he manages carefully. Denies changes in balance beyond his baseline. All systems reviewed & are unremarkable except as reviewed in HPI and above Physical exam (Primary Care) Vital Signs: Last Vital Signs Temp 97.8 F 09/17/25 07:51 Pulse 63 09/17/25 07:51 BP 130/82 09/17/25 07:51 Pulse Ox 97 09/17/25 07:51 Oxygen Delivery Method Room Air 09/17/25 07:51 BMI result Body Mass Index 33.3 Tobacco/Smoking Status: Tobacco use Status Tobacco use date assessed 09/17/25 09/17/25 07:52 Patient Tobacco Use Status Never used Tobacco 09/17/25 07:52 e-Cigarette/Vaping Use Never Used 09/17/25 07:52 PHQ-9: PHQ-9 Score PHQ-9: Total score 0 09/17/25 08:30 Thrive Assessment: Date of Thrive Assessment Date Thrive assessed 09/17/25 09/17/25 07:52 Narrative General: Alert and oriented, Well nourished, No acute distress. Eye: Pupils are equal, round and reactive to light, Intact accommodation, Extraocular movements are intact, Normal conjunctiva, Vision unchanged. HENT: Normocephalic, Atraumatic, Tympanic membranes are clear, Hearing decreased in one ear, Oral mucosa is moist, No pharyngeal erythema, Ear canals patent. Respiratory: Lungs CTA bilaterally, No wheeze, Respirations are non-labored. Cardiovascular: Regular rate, Regular rhythm, S1 auscultated, S2 auscultated, No murmur, Good pulses equal in all extremities, Normal peripheral perfusion, No edema. Gastrointestinal: Soft, Non-tender, Non-distended, Normal bowel sounds, No organomegaly. Musculoskeletal: Normal range of motion, Normal strength, No tenderness, No swelling, No deformity, Normal gait. Integumentary: Warm, Dry, [place], Intact. Neurologic: Alert, Oriented, Normal sensory, Normal motor function, No focal defects, Cranial Nerves II-XII are grossly intact, Normal deep tendon reflexes. Psychiatric: Cooperative, Appropriate mood & affect, Normal judgment. Coding Level of Care Code Est Pt Level 4 (41350) Complex EM visit Add On G2211 Diagnoses Tinnitus H93.19 Persistent atrial fibrillation I48.19 Nonrheumatic aortic valve stenosis I35.0 Cardiac valve disease etiology: nonrheumatic Primary osteoarthritis of both knees M17.0 Laterality: bilateral Osteoarthritis location: knee Osteoarthritis type: primary Mood disorder F39 Assessment & Plan Assessment & Plan (1) Tinnitus: Comment: - The patient's symptoms of constant ringing and hearing loss are concerning. - The differential includes age-related hearing loss (presbycusis), a structural lesion, vestibular schwannoma - An MRI of the head/ear will be ordered to rule out any masses or compression. - A hearing test will also be ordered, and the patient is encouraged to seek a local option if available sooner to assess the degree of hearing loss. Code(s): H93.19 - Tinnitus, unspecified ear Category: Medical (2) Persistent atrial fibrillation: Comment: - The patient is stable on Xarelto. - He will follow up with his physician compensation analyst to discuss the Watchman procedure as an alternative to long-term anticoagulation, given his apprehension about blood thinners. Code(s): I48.19 - Other persistent atrial fibrillation Category: Medical (3) Aortic stenosis: Comment: - This is a chronic condition that requires monitoring. - The patient will be instructed to obtain a copy of his last echocardiogram for review. Code(s): I35.0 - Nonrheumatic aortic (valve) stenosis Category: Medical Qualifiers: Cardiac valve disease etiology: nonrheumatic Qualified Code(s): I35.0 - Nonrheumatic aortic (valve) stenosis (4) Osteoarthritis: Comment: - NSAID use discussed, with emphasis on minimizing frequency due to age and potential systemic effects recommended to take with meals - Monitor for aggravating factors or progression in pain and function. Code(s): M19.90 - Unspecified osteoarthritis, unspecified site Category: Medical Qualifiers: Laterality: bilateral Osteoarthritis location: knee Osteoarthritis type: primary Qualified Code(s): M17.0 - Bilateral primary osteoarthritis of knee (5) Mood disorder: Comment: - Continue Trazadone & Sertraline Code(s): F39 - Unspecified mood [affective] disorder Category: Medical Plan: Health Maintenance: - A follow-up visit is scheduled in 6 months. - The patient is advised to follow up with his physician compensation analyst to discuss management of atrial fibrillation and aortic stenosis. - A hearing test has been recommended to evaluate his hearing loss. Patient was informed and verbally consented to the use of an ambient scribe for clinic note documentation during this visit. Plan I discussed with the patient the potential causes for his new onset of tinnitus and hearing loss, explaining that it could be age-related hearing loss (presbycusis) or related to a structural issue. I recommended an MRI of his head to rule out any masses or lesions and a formal hearing test. I addressed his concerns about MRI safety by explaining that it uses magnetic diaz and is safer than imaging modalities involving ionizing radiation like X-rays or CT scans. We also reviewed his chronic conditions, including atrial fibrillation. I reassured him that his recent episode of nocturnal palpitations and sweating was likely a manifestation of his AFib. We discussed his apprehension regarding long-term blood thinner use, and I encouraged him to speak with his physician compensation analyst about the Watchman procedure as a potential alternative. I instructed him to obtain a copy of his most recent echocardiogram to monitor his aortic stenosis. A follow-up visit was scheduled for six months. Orders: Orders MR head/brain wo/w con Today H93.19 - Tinnitus, unspecified ear Referrals Audiology Referral H93.19 - Tinnitus, unspecified ear Patient Instructions: - An MRI of your head will be ordered to examine your ear. The hospital will contact you to schedule the appointment. - A hearing test will also be ordered. You can look for a place to have this done locally in your town to potentially get it done sooner. - Continue taking your medications as prescribed, including Xarelto, sertraline, and trazodone. - Please contact your previous doctor's office to get a copy of your last heart ultrasound (echocardiogram) and bring it with you to your next appointment. - Follow up with your heart doctor (physician compensation analyst) as planned and be sure to discuss the Watchman procedure with them. - The episode you had at night with a pounding heart and sweating is likely related to your AFib and is not a cause for alarm. If it happens again, it is likely the same reason. - You may continue to use Tylenol as needed for your knee pain. - Please schedule a follow-up appointment in this office in six months.
== END 2025-09-17 08:39 | disposition home or self-care (01) ==
LOC: HO.HMCHD 08:06
PROVIDERS: PCP Student in an Organized Health Care Education/Training Program; Visit Provider Student in an Organized Health Care Education/Training Program
DX: H93.19 Tinnitus, unspecified ear (principal); I48.19 Other persistent atrial fibrillation; I35.0 Nonrheumatic aortic (valve) stenosis; M17.0 Bilateral primary osteoarthritis of knee; F39 Unspecified mood [affective] disorder

== ENCOUNTER → 2025-09-17 08:05 | Outpatient (BNVA) | payer MEDICARE, OTHER, SELFPAY | PROVIDERS: PCP Student in an Organized Health Care Education/Training Program; Visit Provider Student in an Organized Health Care Education/Training Program | DX: H93.11 Tinnitus, right ear (principal); I48.19 Other persistent atrial fibrillation; I35.0 Nonrheumatic aortic (valve) stenosis; M17.0 Bilateral primary osteoarthritis of knee; F39 Unspecified mood [affective] disorder; Z79.01 Long term (current) use of anticoagulants; Z79.899 Other long term (current) drug therapy; Z13.39 Encounter for screening examination for other mental health and behavioral disorders; Z13.30 Encounter for screening examination for mental health and behavioral disorders, unspecified | CPT/HCPCS: 96127; 99212 ==

== ENCOUNTER 2025-10-11 10:27 | Outpatient (REF) | payer MEDICARE, OTHER, SELFPAY ==
--- NOTE | ~2025-10-11 | MR_ITS ---
EXAMINATION: MR BRAIN IAC PROTOCOL WITHOUT CONTRAST CLINICAL INFORMATION: H93.19. Tinnitus, unspecified ear. COMPARISON: None available. TECHNIQUE: MRI of the brain IAC protocol (axial and coronal T2, 3-D space) was obtained using routine sequences without contrast. FINDINGS: No signal abnormality or gross masses in the cochlear or vestibular components of the 8th cranial nerves. No gross masses in the cerebellopontine angle cisterns. Anterior inferior cerebellar arteries are type III, bilaterally. No restricted diffusion. No acute intracranial hemorrhage, mass effect, midline shift, hydrocephalus or herniation. Bilateral multifocal patchy, punctate and confluent deep periventricular white matter hyperintense T2 FLAIR signal involving centrum semiovale and mike radiata. Posterior cranial fossa contents demonstrated no signal abnormality or mass effect. Craniocervical junction is intact with normal position of the cerebellar tonsils. Normal position of the internal jugular bulbs. Meckel's caves, cisterns segments and entry zones of the trigeminal nerves demonstrate no signal abnormality. The cisternal segments of the glossopharyngeal cranial nerves demonstrated no signal abnormality. Flow-void signal within the main cerebral vessels is normal. Sellar/suprasellar region is normal. MR/MR head/brain wo con IMPRESSION: No gross abnormality at the 8th cranial nerves to suggest vestibular schwannoma. Anterior inferior cerebral arteries type III, bilaterally. No high riding internal jugular bulbs. White matter disease likely related to small vessel occlusive disease. Electronically signed by: Anthony Ball MD 10/11/2025 11:31 AM MARILY
--- OUTSIDE RECORDS SUMMARY | 2025-10-11 15:25 | XMS_ITS | Data Portability ---
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 Plan of Treatment Reminders Order Date Submit Date Provider Last Modified By Organization Details Last Modified Time Details Appointments None recorded. Lab None recorded. Referral None recorded. Procedures None recorded. Surgeries None recorded. Imaging None recorded. Medication Orders prednisone 20 mg tablet 2021 022 [facility][id number], [address] [place], [address], 09:36:02 Patient TargetsNo targets recorded. Patient Instructions Encounter Date Encounter Id Patient Instructions Last Modified By Organization Details Last Modified Time 11/01/2022 [id number] [place], [place], and [place]: care instructions Not available 11/01/2022 09:36:49 Reason for Referral None Reported. Problems Name Problem SNOMED Code Status Onset Date Resolution Date Notes Provider Name and Address Organization Details Recorded Time Insomnia 218068426 Active 2021 MP watts, [place] - [facility] 2 08:46:33 Anxiety 60469624 Active 2021 MP MUNOZ null, [place] - [facility] 2 08:46:40 Atrial fibrillation 52457411 Active 2021 MP MUNOZ null, [place] - [...] height Body mass index (BMI) Body weight Pain severity - 0-10 verbal numeric rating [Score] - Reported Oxygen saturation Heart rate Respiratory rate Body temperature Systolic And Diastolic Provider Name and Address Organization Details Last Updated DateTime 2 187.96 cm 31.5 kg/m2 588904. 13 g 0 97 % 69 /min 18 /min 98.1 [degF] 106/61 mm[Hg] MP MUNOZ [place] - [facility] 2 08:52:16 Social History Question Answer Notes LastModified by Winster Details LastModified Time Tobacco Smoking Status Never Smoker MP watts [employer] - [facility] [employer] [facility] 11/01/2022 08:49:13 Have You Recently Traveled Abroad? No Information not available 11/01/2022 Sex: Unknown Functional Status Question Answer Note LastModified by Winster Details LastModified Time How many times per [...] Diagnosis SNOMED-CT Code Diagnosis ICD10 Code Diagnosis IMO Codes Diagnosis Note [id number] [address] [place] [address] 02/15/2020 17:22:42 02/15/2020 20:43:20 [id number] JAMAL ARCEO MD [address] [address] [place] [address] 11/01/2022 08:10:38 11/01/2022 09:40:34 Contact dermatitis caused by urushiol from [place] [id number] L25.5 Return to [facility] or see your [...] Caballero Member ID Guarantor Name 11/01/2022 1 [employer] [place] [id number] Rao Wangnicole [id number] Rao Wangnicole 11/01/2022 1 MEDICARE B-[place]: [employer] Rao Wangnicole [id number] Rao Wangnicole 11/01/2022 2 [facility] [id number] Rao Wangnicole [id number] Rao Arteaga Notes Date Note Type Note Provider Name and Address Organization Details Recorded Time 2 text/html Skin Redness UCReported by PatientSkin Redness UCFor quality, patient reportserythematousanditchy . For severity, patient reportsworsening. For symptoms, patient reportsswellingbut reportsno fever,no nausea, andno vomiting. For location, patient reportsfaceandbilateral arm. For alleviating factors, patient reportsmedication. cutting bushes 2d ago in afternoon and started yest with itchy red rash on RUE - starting to get some on L upper arm and has developed a few lesions on L face and has swelling around the L eye. No eye pain or issues with eye motion. Using an OTC cream which helps the itch. JAMAL ARCEO MD [address] [place], [address], [place] - [facility] 11/01/2022 09:40:36
== END 2025-10-11 10:28 | disposition home or self-care (01) ==
LOC: HO.MRI 10:27
PROVIDERS: PCP Student in an Organized Health Care Education/Training Program; Visit Provider Student in an Organized Health Care Education/Training Program
DX: H93.19 Tinnitus, unspecified ear (principal)
CPT/HCPCS: 70551

== ENCOUNTER → 2025-10-11 10:33 | Outpatient (BNV) | payer MEDICARE, OTHER, SELFPAY | PROVIDERS: PCP Student in an Organized Health Care Education/Training Program; Visit Provider Radiology Diagnostic Radiology | DX: H93.19 Tinnitus, unspecified ear (principal) | CPT/HCPCS: 70551 ==